=== PATIENT | male | born 1990 | race Two or more races ===

== ENCOUNTER 2022-11-03 20:42 | Emergency (ER) | payer OTHER ==
[~2022-11-03] VITALS: Ht 182.9 cm; Wt 99.8 kg
[2022-11-03] MEDS ORDERED: PAXLOVID 300-11 EACH PO (22:42)
== END 2022-11-03 23:19 | disposition home or self-care (01) ==
LOC: ER 20:42
DX: U07.1 COVID-19 (principal)